=== PATIENT | male | born 1980 | race Caucasian/White ===

== ENCOUNTER 2024-05-21 21:22 | Inpatient (IN) | payer OTHER ==
[2024-05-21 21:51] VITALS: BMI 22.1
[2024-05-21] MEDS ORDERED: LOPERAMIDE HCL 2 MG CAPSULE PO PRN (22:14)
[2024-05-21] MEDS ORDERED: NICOTINE POLACRILEX 2 MG GUM BUC PRN (22:14)
[2024-05-21] MEDS ORDERED: guaiFENesin 600 MG TABLET.ER (FP) PO PRN (22:14)
[2024-05-21] MEDS ORDERED: DOCUSATE SODIUM 100 MG CAPSULE (FP) PO PRN (22:14)
[2024-05-21] MEDS ORDERED: BISMUTH SUBSALICYLATE 524 MG/30 ML PO PRN (22:14)
[2024-05-21] MEDS ORDERED: ACETAMINOPHEN 325 MG TABLET (FP) PO PRN (22:14)
[2024-05-21] MEDS ORDERED: BENZONATATE 200 MG CAPSULE PO PRN (22:14)
[2024-05-21] MEDS ORDERED: BENZOCAINE/MENTHOL (CHLORASEPTIC ) LOZENGE MM PRN (22:14)
[2024-05-21] MEDS ORDERED: P-EPHED 60MG/TRIPROLIDI 2.5MG TABLET PO PRN (22:14)
[2024-05-21] MEDS ORDERED: DICYCLOMINE HCL 10 MG CAPSULE PO PRN (22:14)
[2024-05-21] MEDS ORDERED: POLYETHYLENE GLYCOL (HEALTHYLAX) 3350 17 GM PACKET PO PRN (22:14)
[2024-05-21] MEDS ORDERED: NALOXONE (NARCAN) HCL 4 MG/0.1 ML SPRAY NS PRN (22:14)
[2024-05-21] MEDS ORDERED: NICOTINE POLACRILEX 2 MG LOZENGE BC PRN (22:14)
[2024-05-21] MEDS ORDERED: MAGNESIUM HYDROX 2400MG/30ML ORAL SUSPENSION 30 ML CUP PO PRN (22:14)
[2024-05-21] MEDS ORDERED: IBUPROFEN 400 MG TABLET (FP) PO PRN (22:14)
[2024-05-22] MEDS: METHOCARBAMOL 500 MG TABLET PO PRN (00:10)
[2024-05-22] MEDS: hydrOXYzine PAMOATE 25 MG CAPSULE (FP) PO PRN (00:11)
[2024-05-22] MEDS: IBUPROFEN 600 MG TABLET (FP) PO PRN (00:11)
[2024-05-22] MEDS: clonazePAM 0.5 MG ODT TABLETS SL PRN (07:03)
[2024-05-22] MEDS: methaDONE HCL 10 MG TABLET (FOR DETOX USE ONLY) PO ONE ×2 (07:03→19:10)
[2024-05-22] MEDS: ONDANSETRON *ODT* 4 MG TABLET SL PRN (07:04)
[2024-05-22 09:24] LABS: CHLORIDE 110 mmol/L (98-107); POTASSIUM 3.5 mmol/L (3.5-5.1); SODIUM 140 mmol/L (136-145)
[2024-05-22 09:26] LABS: HEMATOCRIT 38.9 % (35.4-49); HEMOGLOBIN 12.5 GM/dL (11.7-16.9); MCH 29.6 pg (25.7-33.7); MCHC 32.2 g/dl (32.0-35.9); MEAN PLT VOLUME 10.1 fl (7.5-11.1); PLATELET COUNT 239 10^3/uL (134-434); RBC 4.22 M/mm3 (4.00-5.60); RDW 14.7 % (11.9-15.9); WHITE BLOOD COUNT 7.4 K/mm3 (4.0-10.0)
[2024-05-22] MEDS: PRENATAL VITAMINS W/ FOLIC ACID TABLET (FP) PO SCH (09:50)
[2024-05-22] MEDS: BACITRACIN ZINC 15 GM TUBE TOPICAL OINTMENT TP SCH (09:50)
[2024-05-22 10:04] LABS: CALCIUM 8.9 mg/dL (8.5-10.1)
[2024-05-22 10:05] LABS: ALBUMIN 3.2 g/dl (3.4-5.0); ANION GAP 10 mmol/L (4-13); BLOOD UREA NITROGEN 28.5 mg/dL (7-18); CO2 20 mmol/L (21-32); GLUCOSE,RANDOM 116 mg/dL (74-106)
[2024-05-22 10:07] LABS: SGPT/ALT 29 U/L (13-61)
[2024-05-22 10:08] LABS: CREATININE 1.1 mg/dL (0.55-1.3); SGOT/AST 23 U/L (15-37)
[2024-05-22 10:09] LABS: BILIRUBIN,TOTAL 0.3 mg/dL (0.2-1); TOT PROT 6.6 g/dl (6.4-8.2)
[2024-05-22 10:10] LABS: ALK PHOS 73 U/L (45-117)
[2024-05-22] MEDS: methaDONE HCL 10 MG TABLET (FOR DETOX USE ONLY) PO PRN (14:39)
[2024-05-22] MEDS: cloNIDine HCL 0.1 MG TABLET PO PRN (14:39)
[2024-05-22] MEDS: MELATONIN 5 MG TABLETS PO SCH (23:16)
[2024-05-22] MEDS: THIAMINE 100 MG TABLET PO SCH (23:16)
[2024-05-23] MEDS: TRIMETHOBENZAMIDE HCL 200MG/2ML INJ IM PRN (09:41)
[2024-05-23] MEDS: methaDONE HCL 10 MG TABLET PO ONE (11:51)
[2024-05-23] MEDS: diazePAM 5 MG TABLET PO ONE (12:12)
[2024-05-23] MEDS ORDERED: BACITRACIN 0.9 GM PACKET ONE (13:57)
[2024-05-23] MEDS: cloNIDine HCL 0.1 MG TABLET PO SCH (13:58)
[2024-05-23] MEDS: methaDONE HCL 10 MG TABLET PO PRN (13:58)
[2024-05-23] MEDS: diazePAM 5 MG TABLET PO PRN (17:42)
[2024-05-23] MEDS: methaDONE HCL 10 MG TABLET (FOR DETOX USE ONLY) PO ONE (18:00)
[2024-05-24] MEDS ORDERED: BACITRACIN 0.9 GM PACKET ONE ×2 (09:15→14:20)
[2024-05-24] MEDS: methaDONE 40 MG, methaDONE 10 MG PO ONE (09:16)
[2024-05-24] MEDS ORDERED: methaDONE HCL 10 MG TABLET (FOR DETOX USE ONLY) PO ONE (10:00)
[2024-05-24] MEDS: VITAMINS A AND D TOPICAL OINTMENT TP SCH (14:23)
[2024-05-24] MEDS: MAG HYDROX/AL HYDROX/SIMETH 30 ML UNIT-DOSE CUP PO PRN (17:12)
[2024-05-25] MEDS: diazePAM 5 MG TABLET PO PRN (01:37)
[2024-05-25] MEDS: cloNIDine HCL 0.1 MG TABLET PO PRN (06:15)
[2024-05-25] MEDS: methaDONE 40 MG, methaDONE 20 MG PO ONE (09:23)
[2024-05-26] MEDS: methaDONE 40 MG, methaDONE 30 MG PO ONE (09:33)
[2024-05-26] MEDS ORDERED: methaDONE HCL 10 MG TABLET (FOR DETOX USE ONLY) PO ONE (10:00)
[2024-05-27] MEDS: methaDONE HCL 40 MG DISPERSABLE TABLET PO ONE (09:17)
[2024-05-28 09:21] VITALS: BP 136/98; PULSE 99; RESP 16; TEMP 98.7
[2024-05-28] MEDS ORDERED: methaDONE 80 MG, methaDONE 10 MG PO ONE (10:00)
== END 2024-05-28 09:50 | disposition home or self-care (01) | DRG 773 ==
LOC: YASAS 21:22 → Y3N 23:09
PROVIDERS: ADMIT Allergy & Immunology; ATTEND Surgery
PROC: HZ2ZZZZ Detoxification Services for Substance Abuse Treatment (ICD-10-PCS; principal; 2024-05-21)
DX: F11.23 Opioid dependence with withdrawal (principal); F14.20 Cocaine dependence, uncomplicated; F17.210 Nicotine dependence, cigarettes, uncomplicated; F19.24 Other psychoactive substance dependence with psychoactive substance-induced mood disorder
CPT/HCPCS: 36415; 80053; 80305; 80307; 85027; 86780; 93005; 93010; Q0162